=== PATIENT | female | born 1970 | race Two or more races ===

== ENCOUNTER 2017-01-24 07:37 | Day surgery (SDC) | payer OTHER ==
[~2017-01-24] VITALS: Ht 157.5 cm; Wt 71.7 kg
[2017-01-24 08:13] VITALS: BP 135/73
[2017-01-24 11:48] VITALS: BP 143/84
== END 2017-01-24 12:35 | disposition home or self-care (01) ==
LOC: GI 07:37 → OR 09:30 → GI 09:30 → OR 10:30 → GI 12:35
PROVIDERS: Internal Medicine Gastroenterology
PROC: 0DBG8ZZ Excision of Left Large Intestine, Via Natural or Artificial Opening Endoscopic (ICD-10-PCS; principal; 2017-01-24 09:30)
DX: K64.8 Other hemorrhoids (principal); K92.1 Melena; K21.9 Gastro-esophageal reflux disease without esophagitis; N92.0 Excessive and frequent menstruation with regular cycle; D64.9 Anemia, unspecified; Z68.29 Body mass index [BMI] 29.0-29.9, adult; Z98.51 Tubal ligation status; D12.4 Benign neoplasm of descending colon
CPT/HCPCS: 45380; J1200; J1610; J2250; J2310; J3010; J3490